=== PATIENT | male | born 1985 | race Caucasian/White ===

== ENCOUNTER 2016-07-26 04:42 | Emergency (ER) | payer OTHER ==
[2016-07-26 05:22] VITALS: BP 110/60
--- NOTE | 2016-07-26 07:45 | Emergency Department Report ---
Abscess Boil HPI - HPI Chief Complaint: Extremity Injury, Upper Stated Complaint: RT THUMB PAIN Time Seen by Provider: 07/26/16 07:22 Duration: 4 Days Location: Upper Extremity (patient patient complaining of right thumb pain around nailbed with some redness and swelling) Severity: Mild History: Yes Pain (right thumb), No Fever, No Purulent Drainage, No Numbness, No Foreign Body, No Previous History, No Insect Bite HPI: Pt here reports that he's been having right thumb painful about 4 days. It is around his nail bed and the pain is throbbing. He said he took over-the- counter medication and didn't help pain at present is 3 out of 10 but it's worse when he moves his right thumb. Denies any drainage. Denies any numbness or tingling. Denies any injury to the area. Home Medications: Previous Rx's Medication Instructions Recorded Last Taken Type Acetaminophen/Codeine [Tylenol 1 tab PO Q6H PRN #12 tab 07/26/16 Unknown Rx /Codeine # 3 tab] Cephalexin [Keflex] 500 mg PO Q8HR #30 cap 07/26/16 Unknown Rx Allergies/Adverse Reactions: Allergies Allergy/AdvReac Type Severity Reaction Status Date / Time No Known Allergies Allergy Verified 07/26/16 05:18 ED Review of Systems ROS: Stated complaint: RT THUMB PAIN Other details as noted in HPI Comment: All other systems reviewed and negative Constitutional: denies: chills, fever Respiratory: no symptoms reported Cardiovascular: denies: chest pain, palpitations, edema, syncope Gastrointestinal: denies: nausea, vomiting Musculoskeletal: arthralgia. denies: back pain, myalgia Skin: other (rt thumb red swollen) Neurological: denies: headache, weakness, numbness, paresthesias ED Past Medical Hx - Past Medical History Previous Medical History?: No - Surgical History Past Surgical History?: No - Family History Family history: no significant - Social History Smoking Status: Current Every Day Smoker Substance Use Type: Alcohol, Marijuana - Medications Home Medications: Home Medications Medication Instructions Recorded Confirmed Last Taken Type Acetaminophen/Codeine [Tylenol 1 tab PO Q6H PRN #12 tab 07/26/16 Unknown Rx /Codeine # 3 tab] Cephalexin [Keflex] 500 mg PO Q8HR #30 cap 07/26/16 Unknown Rx ED Abscess Boil Physical Exam - Exam General: Vital signs noted. No distress. Alert and acting appropriately. This is a 31-year-old male well-nourished well-developed in no acute distress. Exam: Yes Tenderness (right thumb distally around nailbed.), Yes Surrounding Cellulites/Erythema (mild erythema. Right thumb nailbed), Yes Normal Neurologic Exam, Yes Normal Circulation, No Fluctuance, No Lymphangitis, No Crepitation, No Heart Murmur Exam: Head: Normocephalic atraumatic. Skin: Normal exam except patient with redness and swelling to right thumb distally around nailbed. Minimal induration without any fluctuant. Tender to palpate. Heart : S1 and S2, regular rate and rhythm. No murmur. Lungs: Her to auscultate bilaterally, no rhonchi wheezes or rales. Normal work of breathing. Psych: Normal mood. EXT: No Clubbing cyanosis or edema. +2 pulses bilaterally and no neurovascular compromise. I & D Note - I & D Note I & D Note: Patient with cellulitis around to right thumb. No incision and drainage done. Area with minimal induration and no fluctuance. ED Course Vital Signs 07/26/16 04:50 Temperature 98 F Pulse Rate 69 Respiratory 18 Rate Blood Pressure 110/60 [Right] O2 Sat by Pulse 100 Oximetry - Reevaluation(s) Reevaluation #1: 07/26/16 08:55 Status stable no distress. Critical care attestation.: If time is entered above; I have spent that time in minutes in the direct care of this critically ill patient, excluding procedure time. ED Medical Decision Making - Medical Decision Making ED course: Patient with cellulitis around right thumb. No need for incision and drainage. I explained to patient has diagnosis and treatment plan and agreement. Patient discharged home with prescription for Keflex and Tylenol No. 3. I encouraged him to soak affected area in warm water 3-4 times a day to facilitate softening and drainage. I also encouraged him to keep area clean and dry. ED Disposition Clinical Impression: Cellulitis of right thumb, Arthralgia of right hand Disposition: DISCHARGED TO HOME OR SELFCARE Is pt being admited?: No Does the pt Need Aspirin: No Condition: Stable Instructions: Cellulitis (ED), Arthralgia (ED), Paronychia (ED) Additional Instructions: take Antibiotic as prescribed. You can soak right thumb in warm water 3-4 times a day. Tylenol 3 can cause drowsiness so please do not operate heavy machinery or drive motor vehicle while taking this medication. Please follow-up with outside Medical Center if he does not have a primary care physician in 2-3 days otherwise follow-up with primary care physician Prescriptions: Acetaminophen/Codeine [Tylenol /Codeine # 3 tab] 1 tab PO Q6H PRN #12 tab PRN Reason: Pain Cephalexin [Keflex] 500 mg PO Q8HR #30 cap Referrals: PRIMARY CARE,MD [Primary Care Provider] - 2-3 Days [facility] [Outside] - 2-3 Days Forms: Work/School Release Form(ED)
== END 2016-07-26 09:05 | disposition home or self-care (01) ==
LOC: ED 04:42
DX: L03.011 Cellulitis of right finger (principal); M25.541 Pain in joints of right hand; F17.200 Nicotine dependence, unspecified, uncomplicated; F12.10 Cannabis abuse, uncomplicated
CPT/HCPCS: 99282